=== PATIENT | male | born 1995 | race Caucasian/White ===

== ENCOUNTER 2022-09-06 13:46 | Emergency (ER) | payer OTHER ==
[2022-09-06 14:02] VITALS: BP 160/93
--- NOTE | 2022-09-06 15:49 | ED Physician Documentation ---
PD HPI HEENT - Stated complaint Stated Complaint: BILAT EAR PX - Chief complaint Chief Complaint: Heent - History obtained from History obtained from: Patient - Additional information Additional information: 4 days of inability to hear from the left ear, more severe pain from the right ear for the last day. Is associated with a runny nose. No history of otitis. No fevers. Review of Systems Constitutional: denies: Fever, Chills Ears: reports: Ear pain Nose: reports: Rhinorrhea / runny nose Throat: denies: Sore throat PD PAST MEDICAL HISTORY - Present Medications Home Medications: Ambulatory Orders Medication Instructions Recorded Confirmed Amox/Clav 875/125 [Augmentin] 1 each PO Q12H #20 tablet 09/06/22 - Allergies Allergies/Adverse Reactions: Allergies Allergy/AdvReac Type Severity Reaction Status Date / Time No Known Drug Allergies Allergy Verified 09/06/22 14:02 PD ED PE NORMAL - Vitals Vital signs reviewed: Yes - General General: Alert and oriented X 3, No acute distress - HEENT HEENT: Other (Severe bilateral otitis media, no perforation, oropharynx normal) - Neuro Neuro: Alert and oriented X 3, testing analyst 2-12 intact, Normal speech Results - Vitals Vitals: Vital Signs - 24 hr 09/06/22 13:59 Temperature 36.8 C Heart Rate 61 Respiratory 16 Rate Blood Pressure 160/93 H O2 Saturation 99 Oxygen O2 Source Room air Departure - Departure Disposition: 01 Home, Self Care Clinical Impression: Bilateral otitis media Qualifiers: Otitis media type: suppurative Chronicity: acute Recurrence: non-recurrent Spontaneous tympanic membrane rupture: without spontaneous rupture Qualified Code(s): H66.003 - Acute suppurative otitis media without spontaneous rupture of ear drum, bilateral Condition: Good Instructions: ED Otitis Media Acute Adult Prescriptions: Amox/Clav 875/125 [Augmentin] 1 each PO Q12H #20 tablet Comments: I sent your prescription electronically to [facility] in [place]. Recheck with your doctor in 1 week, return for new or worsening symptoms.
== END 2022-09-06 15:53 | disposition home or self-care (01) ==
LOC: ED 13:46
DX: H66.003 Acute suppurative otitis media without spontaneous rupture of ear drum, bilateral (principal)
CPT/HCPCS: 99282

== ENCOUNTER 2023-09-27 08:00 | Outpatient (CLI) | payer OTHER ==
[2023-09-27 17:54] LABS: BASOPHILS % (AUTO) 0.1 %; EOSINOPHILS # (AUTO) 0.1 10^3/uL (0.0-0.7); EOSINOPHILS % (AUTO) 1.6 %; HGB - HEMOGLOBIN 14.8 g/dL (14.0-18.0); LYMPHOCYTES % (AUTO) 25.8 %; MEAN CORPUSCULAR HEMOGLOBIN 27.2 pg (27.0-31.0); MEAN CORPUSCULAR HGB CONC 32.9 g/dL (32.0-36.0); MEAN CORPUSCULAR VOLUME 82.7 fL (80.0-94.0); MEAN PLATELET VOLUME 10.5 fL (7.4-11.4); MONOCYTES # (AUTO) 0.4 10^3/uL (0.0-1.0); MONOCYTES % (AUTO) 5.7 %; NEUTROPHILS % (AUTO) 66.5 %; PLT - PLATELET COUNT 238 10^3/uL (130-450); RED BLOOD COUNT 5.44 10^6/uL (4.70-6.10); RED CELL DISTRIBUTION WIDTH 13.2 % (12.0-15.0); WHITE BLOOD COUNT 7.6 x10^3/uL (4.8-10.8)
[2023-09-27 18:07] LABS: ALBUMIN 4.7 g/dL (3.2-5.5); BILIRUBIN,TOTAL 0.6 mg/dL (0.2-1.0); CALCIUM 9.4 mg/dL (8.5-10.3); CREATININE 1.1 mg/dL (0.6-1.3); POTASSIUM 4.3 mmol/L (3.5-4.5); TOTAL PROTEIN 7.1 g/dL (6.4-8.9)
[2023-09-27 18:13] LABS: BILIRUBIN,URINE NEGATIVE (NEGATIVE); GLUCOSE, URINE (UA) NEGATIVE (NEGATIVE); KETONES,URINE (UA) NEGATIVE (NEGATIVE); LEUKOCYTE ESTERASE, URINE NEGATIVE (NEGATIVE); NITRITE,URINE NEGATIVE (NEGATIVE); OCCULT BLOOD,URINE NEGATIVE (NEGATIVE); PROTEIN,URINE NEGATIVE (NEGATIVE); UROBILINOGEN,URINE 0.2 (NORMAL) E.U./dL (NORMAL)
[2023-09-27 18:58] LABS: BACTERIA,URINE None Seen /HPF (None Seen); CLARITY,URINE CLEAR (CLEAR); RBC,URINE None Seen /HPF (0-5); SQUAMOUS EPITHELIAL CELL,UR NONE SEEN (<= Few); WBC,URINE 0-3 /HPF (0-3)
== END 2023-09-27 23:59 | disposition home or self-care (01) ==
LOC: LAB.N 08:00
PROVIDERS: ATTEND Specialist
DX: R10.9 Unspecified abdominal pain (principal)
CPT/HCPCS: 36415; 80053; 81001; 82150; 83690; 85025; 87045; 87046; 87086; 87427

== ENCOUNTER 2024-04-13 16:13 | Emergency (ER) | payer OTHER ==
[2024-04-13 16:52] LABS: RAPID STREP SCREEN Negative (Negative)
[2024-04-13 17:02] VITALS: BP 134/73; O2SAT 99
[2024-04-13 17:34] LABS: B. PARAPERTUSSIS- RESP PCR PAN NOT DETECTED; B. PERTUSSIS- RESP PCR PANEL NOT DETECTED; C. PNEUMONIAE- RESP PCR PANEL NOT DETECTED; CORONAVIRUS 229E-RESP PCR NOT DETECTED; CORONAVIRUS HKU1-RESP PCR NOT DETECTED; CORONAVIRUS NL63-RESP PCR NOT DETECTED; CORONAVIRUS OC43-RESP PCR NOT DETECTED; HUMAN METAPNEUMOVIRUS NOT DETECTED; INFLUENZA A- RESP PCR PANEL NOT DETECTED; INFLUENZA B - RESP PCR PANEL NOT DETECTED; M. PNEUMONIAE- RESP PCR PANEL NOT DETECTED; PARAINFLUENZA VIRUS 1 NOT DETECTED; PARAINFLUENZA VIRUS 2 NOT DETECTED; PARAINFLUENZA VIRUS 3 NOT DETECTED; PARAINFLUENZA VIRUS 4 NOT DETECTED; RHINOVIRUS/ENTEROVIRUS NOT DETECTED; RSV- RESP PCR PANEL NOT DETECTED; SARS-CoV-2 -RESP PCR PANEL NOT DETECTED
[2024-04-13 17:42] LABS: BILIRUBIN,URINE NEGATIVE (NEGATIVE); GLUCOSE, URINE (UA) NEGATIVE (NEGATIVE); KETONES,URINE (UA) NEGATIVE (NEGATIVE); LEUKOCYTE ESTERASE, URINE NEGATIVE (NEGATIVE); NITRITE,URINE NEGATIVE (NEGATIVE); OCCULT BLOOD,URINE NEGATIVE (NEGATIVE); PROTEIN,URINE NEGATIVE (NEGATIVE); UROBILINOGEN,URINE 1 (NORMAL) E.U./dL (NORMAL)
[2024-04-13 17:43] LABS: CLARITY,URINE CLEAR (CLEAR)
--- NOTE | 2024-04-13 18:03 | ED Physician Documentation ---
History of Present Illness - Stated complaint Stated Complaint: SOA/SORE THROAT - Chief complaint Chief Complaint: Back Pain - History obtained from History obtained from: Patient - Additonal information Additional information: 29 yo M presented With right lower back pain for the last several days, somewhat radiating into the right flank. Worse with movements or palpation. 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 He has not taken any medication for this but states that in the past Toradol has been effective when he has had back pain. He denies any dysuria urgency or frequency, no nausea vomiting diarrhea or constipation. He also noticed last couple days that he developed a sore throat, no cough or other URI symptoms, no fever or chills. He is tolerating p.o. well though it is uncomfortable to swallow. Feels mildly short of breath at times but no wheezing no acute shortness of breath, no chest pain. Review of Systems Constitutional: reports: Reviewed and negative Eyes: reports: Reviewed and negative Ears: reports: Reviewed and negative Nose: reports: Reviewed and negative Throat: reports: Sore throat Cardiac: reports: Reviewed and negative Respiratory: reports: Dyspnea, Wheezing. denies: Cough, Hemoptysis GI: reports: Reviewed and negative, Other : reports: Reviewed and negative PD PAST MEDICAL HISTORY - Past Medical History Past Medical History: Yes Cardiovascular: None Respiratory: None Endocrine/Autoimmune: None GI: GERD : None HEENT: None Psych: Depression, Anxiety Musculoskeletal: None Derm: None - Past Surgical History Past Surgical History: No - Present Medications Home Medications: Ambulatory Orders Medication Instructions Recorded Confirmed Cyclobenzaprine [Flexeril] 10 mg PO TID PRN 6 Days #20 tablet 04/13/24 Ketorolac [Toradol] 10 mg PO Q6H #30 tablet 04/13/24 - Allergies Allergies/Adverse Reactions: Allergies Allergy/AdvReac Type Severity Reaction Status Date / Time No Known Drug Allergies Allergy Verified 04/13/24 16:27 - Social History Does the pt smoke?: Yes Smoking Status: Current every day smoker Does the pt drink ETOH?: Yes Does the pt have substance abuse?: Yes Substance Use and Type: Marijuana - Immunizations Immunizations are current?: Yes - POLST Patient has POLST: No PD ED PE NORMAL - Vitals Vital signs reviewed: Yes - General General: Alert and oriented X 3, No acute distress, Well developed/nourished - HEENT HEENT: Atraumatic, Moist mucous membranes - Neck Neck: Supple, no meningeal sign, No JVD - Cardiac Cardiac: RRR, No murmur, No gallop, No rub - Respiratory Respiratory: No respiratory distress, Clear bilaterally - Abdomen Abdomen: Normal bowel sounds, Soft, Non tender, Non distended - Back Back: No CVA TTP, Other ( right lumbar paravertebral muscle tenderness with palpation, no CVAT.) - Derm Derm: Normal color, Warm and dry - Extremities Extremities: No deformity, No tenderness to palpate, Normal ROM s pain, No edema, No calf tenderness / cord Results - Vitals Vitals: Vital Signs - 24 hr 04/13/24 16:27 Temperature 37 C Heart Rate 107 H Respiratory 20 Rate Blood Pressure 134/73 H O2 Saturation 99 Oxygen O2 Source Room air - Labs Labs: Laboratory Tests 04/13/24 04/13/24 04/13/24 16:25 16:25 17:35 Urine Color YELLOW Urine Clarity CLEAR Urine pH 7.0 Ur Specific [place] 1.025 Urine Protein NEGATIVE Urine Glucose (UA) NEGATIVE Urine Ketones NEGATIVE Urine Occult Blood NEGATIVE Urine Nitrite NEGATIVE Urine Bilirubin NEGATIVE Urine Urobilinogen 1 (NORMAL) Ur Leukocyte Esterase NEGATIVE Ur Microscopic Review NOT INDICATED Urine Culture Comments NOT INDICATED Nasal Adenovirus (PCR) NOT DETECTED Nasal B. parapertussis DNA (PCR) NOT DETECTED Nasal Coronavir 229E PCR NOT DETECTED Nasal Coronavir HKU1 PCR NOT DETECTED Nasal Coronavir NL63 PCR NOT DETECTED Nasal Coronavir OC43 PCR NOT DETECTED Nasal Enterovir/Rhinovir PCR NOT DETECTED Nasal Influenza B PCR NOT DETECTED Nasal Influenza A PCR NOT DETECTED Nasal Parainfluen 1 PCR NOT DETECTED Nasal Parainfluen 2 PCR NOT DETECTED Nasal Parainfluen 3 PCR NOT DETECTED Nasal Parainfluen 4 PCR NOT DETECTED Nasal RSV (PCR) NOT DETECTED Nasal B.pertussis DNA PCR NOT DETECTED Nasal C.pneumoniae (PCR) NOT DETECTED Gilberto Human Metapneumo PCR NOT DETECTED Nasal M.pneumoniae (PCR) NOT DETECTED Nasal SARS-CoV-2 (PCR) NOT DETECTED Group A Strep Rapid Negative PD Medical Decision Making - ED course Complexity details: reviewed results, re-evaluated patient, considered differential, d/w patient ED course: 29-year-old male presented with says sore throat as well as low back pain as described in HPI. The patient is well-appearing here on physical exam, afebrile nontoxic in no acute distress. On his back exam, does have reproducible paravertebral muscle pain in the lumbar spine, no midline tenderness and he has no signs of cauda equina or Acute infection.His pain is likely musculoskeletal, did consider ureteral stone however more reproducible on the muscles and patient does not appear uncomfortable, is not having any urinary symptoms. I did advise the patient that it is possibly has a small stone but treatment nonetheless would be supportive including NSAIDs, Tylenol, oral fluids. His urinalysis is negative for signs of infection. In regards to his sore throat, his viral panel is negative, strep negative and his physical exam is reassuring, no sign of peritonsillar abscess or exudate. Suspect viral pharyngitis, again recommended supportive measures. Discussed return precautions. Patient was given a dose of Toradol here and discharged with as needed Flexeril for his back, and recommended ibuprofen and Tylenol for the above symptoms. Return precautions reviewed in detail Departure - Departure Disposition: 01 Home, Self Care Clinical Impression: Viral URI Low back strain Qualifiers: Encounter type: initial encounter Qualified Code(s): S39.012A - Strain of muscle, fascia and tendon of lower back, initial encounter Condition: Good Instructions: ED Sprain Strain Lumbar, ED Viral Syndrome Prescriptions: Cyclobenzaprine [Flexeril] 10 mg PO TID PRN 6 Days #20 tablet PRN Reason: Spasms Ketorolac [Toradol] 10 mg PO Q6H #30 tablet Comments: Mckeon, your labs today did not show any sign of strep throat or urinary tract infection. We also did a viral panel which was negative. Your back pain is likely due to tight muscles in this area and I have ordered a muscle laxer to help with that, you can also use a cool or warm compress, ibuprofen and Tylenol or I have ordered Toradol orally which can be helpful to you. This should improve the next several days. Your sore throat and hoarse voice I think are likely due to a viral illness and likely should improve with rest and time. If you develop a fever or worsening symptoms, please return to the ER. Medication sent to [facility] Discharge Date/Time: 04/13/24 18:29
[2024-04-13] MEDS: KETOROLAC 60 MG/2 ML VIAL IM STA (18:17)
--- NOTE | 2024-04-15 17:37 | ED Physician Documentation ---
ED Addendum - Addendum Addendum: 04/15/24 17:36 Throat culture came back positive for group C strep. Pen VK will be sent to the patient's pharmacy of choice. Departure - Departure Disposition: 01 Home, Self Care Clinical Impression: Viral URI Low back strain Qualifiers: Encounter type: initial encounter Qualified Code(s): S39.012A - Strain of mus celio, fascia and tendon of lower back, initial encounter Condition: Good Instructions: ED Sprain Strain Lumbar, ED Viral Syndrome Prescriptions: Penicillin V Potassium 500 mg PO Q6HR #40 tablet Cyclobenzaprine [Flexeril] 10 mg PO TID PRN 6 Days #20 tablet PRN Reason: Spasms Ketorolac [Toradol] 10 mg PO Q6H #30 tablet Comments: Mckeon, your labs today did not show any sign of strep throat or urinary tract infection. We also did a viral panel which was negative. Your back pain is likely due to tight muscles in this area and I have ordered a muscle laxer to help with that, you can also use a cool or warm compress, ibuprofen and Tylenol or I have ordered Toradol orally which can be helpful to you. This should improve the next several days. Your sore throat and hoarse voice I think are likely due to a viral illness and likely should improve with rest and time. If you develop a fever or worsening symptoms, please return to the ER. Medication sent to [facility] [place] Discharge Date/Time: 04/13/24 18:29
== END 2024-04-13 18:29 | disposition home or self-care (01) ==
LOC: ED 16:13
DX: J06.9 Acute upper respiratory infection, unspecified (principal); B97.89 Other viral agents as the cause of diseases classified elsewhere; S39.012A Strain of muscle, fascia and tendon of lower back, initial encounter; X58.XXXA Exposure to other specified factors, initial encounter; F17.200 Nicotine dependence, unspecified, uncomplicated
CPT/HCPCS: 81001; 81003; 87070; 87077; 87086; 87430; 87633; 96372; 99283